=== PATIENT | male | born 1965 | race Caucasian/White ===

== ENCOUNTER 2019-08-01 13:40 | Emergency (ER) | payer SELFPAY ==
[~2019-08-01] VITALS: Ht 167.6 cm; Wt 79.6 kg
[2019-08-01] MEDS ORDERED: SODIUM CHLORIDE FLUSH 10ML SYR IVF ONE (14:30)
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
[2019-08-01 15:25] LABS: BASOPHILS # (AUTO) 0.01 x10^3/uL (0-0.1); BASOPHILS % (AUTO) 0 % (0-1); EOSINOPHILS # (AUTO) 0.39 x10^3/uL (0-0.4); EOSINOPHILS % (AUTO) 5 % (1-7); LYMPHOCYTES % (AUTO) 17 % (22-44); MD NO; MEAN CORPUSCULAR HEMOGLOBIN 33.7 pg (27.5-34.5); MEAN CORPUSCULAR HGB CONC 33.3 g/dL (33.2-36.2); MEAN CORPUSCULAR VOLUME 101.2 fL (81-97); MEAN PLATELET VOLUME 8.3 fL (7.4-10.4); MONOCYTES % (AUTO) 7 % (2-9); NEUTROPHILS # (AUTO) 5.81 x10^3/uL (1.8-6.8); NEUTROPHILS % (AUTO) 71 % (42-75); PLATELET COUNT 353 x10^3/uL (130-400); RED BLOOD COUNT 3.96 x10^6/uL (4.38-5.82); RED CELL DISTRIBUTION WIDTH 14.5 % (9.4-14.8)
[2019-08-01] MEDS ORDERED: ONDANSETRON 2MG/ML, 2ML ONE (15:25)
[2019-08-01] MEDS ORDERED: MORPHINE SULFATE 4 MG/ML, 1ML ONE (15:25)
[2019-08-01] MEDS ORDERED: MORPHINE SULFATE 4 MG/ML, 1ML IVPush PRN (15:30)
[2019-08-01] MEDS ORDERED: ONDANSETRON 2MG/ML, 2ML IVPush ONE (15:30)
--- NOTE | 2019-08-01 15:41 | NUR ---
PT MEDICATED FOR PAIN PER MD ORDER. WAITING FOR CT.
[2019-08-01 15:48] LABS: ALANINE AMINOTRANSFERASE 24 U/L (12-78); ALBUMIN 3.3 g/dL (3.4-5.0); ANION GAP 10 mmol/L (5-15); CALCIUM 8.6 mg/dL (8.5-10.1); CHLORIDE 107 mmol/L (98-107); CREATININE 0.99 mg/dL (0.7-1.3)
[2019-08-01 15:50] LABS: ALKALINE PHOSPHATASE 111 U/L (45-117); BILIRUBIN,TOTAL 0.5 mg/dL (0.2-1.0); TOTAL PROTEIN 7.1 g/dL (6.4-8.2)
--- NOTE | 2019-08-01 16:00 | NUR ---
PT REPORTS PAIN IS BETTER AFTER MORPHINE AT A 4/10.
--- NOTE | 2019-08-01 16:20 | NUR ---
PT TO CT.
[2019-08-01] MEDS ORDERED: OMNIPAQUE 350 MG/ML, 100ML BOTTLE ONE (16:32)
[2019-08-01] MEDS ORDERED: CEPHALEXIN 500 MG CAPSULE PO ONE (17:00)
[2019-08-01] MEDS ORDERED: CEPHALEXIN 500 MG CAPSULE ONE (17:17)
[2019-08-01 17:26] VITALS: BP 167/77
== END 2019-08-01 17:28 | disposition home or self-care (01) ==
LOC: ED 15:03
DX: S01.01XD Laceration without foreign body of scalp, subsequent encounter (principal); S31.119D Laceration without foreign body of abdominal wall, unspecified quadrant without penetration into peritoneal cavity, subsequent encounter; X58.XXXD Exposure to other specified factors, subsequent encounter
CPT/HCPCS: 36415; 74177; 80053; 85025; 96374; 96375; 99285; J2270; J2405; Q9967